=== PATIENT | male | born 1970 | race Caucasian/White ===

== ENCOUNTER → 2025-04-12 13:47 | Outpatient (REF) | payer OTHER, SELFPAY | LOC: RCS 13:47 | PROVIDERS: ATTENDING PHYSICIAN Physician Assistant Medical; FAMILY PHYSICIAN Family Medicine | DX: R00.2 Palpitations (principal); R00.0 Tachycardia, unspecified | CPT/HCPCS: 93225; 93226 ==

== ENCOUNTER 2025-04-15 05:59 | Observation (INO) | payer OTHER, SELFPAY ==
[2025-04-14 23:15] VITALS: BP 142/90
[2025-04-15] VITALS (7 sets, daily range): BP systolic 104–130; BP diastolic 71–87; BMI 26.4; BMI 25.8
[2025-04-15 01:17] LABS: Hematocrit 42.2 % (39.0-52.0); Hemoglobin 14.7 g/dL (13.0-18.0); Mean Corp Hgb Conc. 34.8 g/dL (33.0-37.0); Mean Corpuscular Volume 94.6 fL (80.0-94.0); Nucleated Red Blood Cells % 0 % (-); Platelet Count 250 10^3/uL (130-400); Red Cell Dist. Width 11.8 % (11.5-14.5)
[2025-04-15 01:30] LABS: ALT (SGPT) 22 U/L (0-50); AST (SGOT) 28 U/L (17-59); Albumin 4.9 g/dl (3.5-5.0); Alkaline Phosphatase 78 U/L (38-126); Blood Urea Nitrogen 13 mg/dl (9-20); Calcium 9.5 mg/dl (8.4-10.2); Carbon Dioxide 26 mmol/L (22-30); Chloride 110 mmol/L (98-107); Estimated Creatinine Clearance 92 ml/min; Glucose 97 mg/dl (70-99); Potassium 4.2 mmol/L (3.5-5.1); Sodium 145 mmol/L (135-145); Total Protein 7.2 g/dl (6.3-8.2); eGFR > 60.00
[2025-04-15 01:41] LABS: Troponin I 0.019 ng/ml
--- NOTE | 2025-04-15 03:05 | ED.GENMED ---
History of Present Illness
General
Chief Complaint: Cardiac Symptoms
Time Seen by Provider: 04/15/25 02:09
History of Present Illness
History of Present Illness:
54-year-old male with past medical history of rheumatoid arthritis presenting to the emergency department for palpitations and fluttering. Patient reports that the symptoms have been ongoing for some time, has recently followed up with his primary
care doctor and had Holter monitor completed, dropped off today. He has an upcoming appointment with cardiology in about 2 weeks. He reports that the fluttering has been increasing in duration and quality in the past few weeks. Last month he had
2 episodes where symptoms lasted about 2 hours. Prior to arrival he also had an episode. He notes that each time that he has a severe episode, usually precipitated by alcohol. Reports that in February, he had 2 episodes where he had been drinking the
night before and the following day had severe fluttering and discomfort. Denies any associated pain. Denies significant personal cardiac history or family history of cardiac disease. Denies fever. Denies difficulty breathing. Denies any
excessive caffeine intake. Recently had thyroid testing few weeks ago, normal. Denies additional acute medical complaints
Past History
Past History
ED Past Medical History: Other (arthritis, diverticulitis)
ED Past Surgical History: Orthopedic
Social History
Tobacco: Non-smoker
Drug: None
Phy Exam
Physical Exam
Physical Exam:
General: Well-appearing, no clinical signs of dehydration, nontoxic and in no acute distress
HEENT: protecting airway
Neck: appears supple
CV: Normal heart rate, regular rhythm, no evidence of cyanosis
Resp: No accessory muscle use, no increased work of breathing, lungs clear to auscultation bilaterally
Abd: No distention
Extremities: No deformities, no swelling
Neuro: alert, no focal neurologic deficit
: deferred
Rectal: deferred
Psych: Normal affect
Skin: Intact
Course
Orders/Labs/Results
Orders:
Orders
04/14/25 23:20
ECG [Electrocardiogram (*1)] Urgent
Reason for Study: Chest Pain
EKG- Treatment ONCE
Complete Blood Count/With Diff Urgent
Comprehensive Metabolic Panel Urgent
Troponin I Urgent
04/15/25 01:08
TSH Reflex To Free T4 Routine
Comment: ADD OB
04/15/25 03:45
EKG [Electrocardiogram (*1)] Urgent
Reason for Study: Chest Pain
04/15/25 03:53
Troponin I Urgent
04/15/25 05:41
Aspirin Chewable [Low Strength Aspirin] 324 mg PO NOW STA
04/15/25 05:44
Admit/Transfer Patient As Directed
Co-Sign Provider:
Level of Care: Observation services
Assign to:: Telemetry
Physician / Group: Andree
Diagnosis: palpitations, chest pain
Reason for Telemetry: Chest Pain syndromes
Date to Stop Telemetry: 04/17/25
Time to Stop Telemetry: 11:00
PRN Pain Medication Management As Directed
May give lesser potent ordered pain med per pt: Yes
preference::
Protocol:: Medication orders for pain may be administered in a
manner that supports deferring to patient preference
when the pt is:
- Requesting an ordered lesser potent pain medication.
Least to most potent pain medications are defined
as: acetaminophen < NSAID < tramadol < opioids
(morphine, oxycodone, hydromorphone).
- Requesting a lesser dose of the same medication IF
ORDERED.
- Requesting a less intrusive route of administration
if both routes are prescribed by the provider (PO <
IV).
04/15/25 05:45
Code Status As Directed
Resuscitation Status: Full Code
04/15/25 Breakfast
Cholesterol Lowering
At Your Request: Full Participation
Does patient need a safe tray?: No
Cholesterol Lowering: Sodium, 2 Gram
04/15/25 07:35
Acetaminophen [Tylenol] 650 mg PO Q4HPRN PRN
Nitroglycerin Sublingual [Nitrostat (Sublingual)] 0.4 mg SL [id number] PRN
04/15/25 07:35
CARDIOLOGY CONSULT Routine
Consulting Provider: Stephen Mckeon
Was physician already notified: No
Reason for consult: palpitations, rising trop 0.019 -> 0.035
Consult Notification Routine
Specialty to Notify: Cardiology
Date consulting provider notified: 04/15/25
Time consulting provider notified: 07:37
Notified:: Provider
Activity As Directed
Activity Level: As Tolerated
INT (Intravenous Needle Therapy) As Directed
Comment: maintain peripheral IV access
Intake/ Output As Directed
Frequency: Per unit guidelines
Pneumatic Compression Sleeves As Directed
Type: Knee high
Vital Signs As Directed
Frequency: q4h
Weight As Directed
Frequency: Daily
Pulse Ox/spot Check [RESP] Routine
Quantity: 1
Special Instructions: on admission and then every shift if on oxygen
DX Deep Vein Thrombosis Video Routine
04/15/25 08:00
FOLic ACID [Folvite] 1 mg PO DAILY
04/15/25 10:25
Troponin I Q3H
Comment: at admit & Q3H for 3 total including ED draws, obtain ECG with each level
04/16/25 18:00
Methotrexate Sodium [Methotrexate] 20 mg PO WEEKLY
04/17/25 11:00
DC Protocol for Telemetry ONCE
Abnormal Lab Results
04/15/25 04/15/25
01:08 03:53
RBC 4.46 L 10^6/uL
(4.70-6.10)
MCV 94.6 H fL
(80.0-94.0)
MCH 33.0 H pg
(27.0-31.0)
Monocytes % 9.4 H %
(1.7-9.3)
Chloride 110 H mmol/L
(98-107)
Troponin I 0.035 H* D ng/ml
04/15/25 01:08
04/15/25 01:08
Vital Signs
Initial and Last Documented VS:
Initial Vital Signs
Temp Pulse Resp BP Pulse Ox
97 F 90 20 142/90 100
04/14/25 23:15 04/14/25 23:15 04/14/25 23:15 04/14/25 23:15 04/14/25 23:15
Last Documented Vital Signs
Temp Pulse Resp BP Pulse Ox
98.3 F 82 18 118/71 98
04/15/25 11:10 04/15/25 11:10 04/15/25 11:10 04/15/25 11:10 04/15/25 11:10
MDM/Problems Addressed
MDM/Problems Addressed:
54-year-old male without significant past medical history presenting to the emergency department for fluttering and palpitations. Vital signs on arrival are normal.
On exam patient is resting comfortably, no acute distress or discomfort. Patient reports that he an episode prior to arrival where he was wearing his Holter monitor, recently dropped off the Holter monitor today. Currently unremarkable cardiac and
pulmonary exam, EKG sinus rhythm without acute evidence of ischemia or arrhythmia. Unclear etiology of symptoms, however currently hemodynamically stable. Labs obtained prior to my assessment, detectable but normal troponin, and normal electrolyte
panel. Will repeat troponin and continue to monitor via court recording monitor.
03:00 -Able to see patient's Holter monitor report, read by cardiology. Notes no significant arrhythmia or pauses. Symptoms and conclusion are suspected to be correlated with sinus tachycardia, sinus rhythm and PVCs. No concerning rhythms
detected. Copy of patient's report provided to patient
05:00 - Patient second troponin is now elevated. Repeat EKG without acute ischemia, however in the setting of increasing troponins and cardiac symptoms, plan for admission for troponin trending and cardiac consultation
*Pulse Oximetry
SaO2: 99
Oxygen Mode of Delivery: Room air
Patient hypoxic: no
*EKG
Interpreted by ED Provider?: Yes
EKG Intrepretation Date: 04/15/25
EKG Intrepretation Time: 03:10
Interpretation: normal
Heart Rate: 84
Rate: normal
Rhythm: sinus
[place]: normal axis
Interval: normal interval
QRS Pattern: normal QRS
Ischemia: no ischemia
*Critical Care Note
Total Time (30-74mins, 75-104mins- exclusive of procedures): Not Applicable
ED Attending Note
-
Portions of this chart may have been created with voice recognition software.� Occasional wrong word or��sound alike� substitutions may have occurred due to the inherent limitations of voice recognition software.
Discharge Plan
Departure
Patient Disposition: Admit
Date of Disposition: 04/15/25
Time of Disposition: 05:01
Presentation/result/management discussed w/ accepting MD/DO: Hospitalist
Patient with high blood pressure during this ER visit?: No
Condition: Good
Discharge Problem:
Palpitations
Interventions
Interventions:
*Risk Screen - Suicide Last Done: 04/14/25 23:15
*General Assessment Last Done: 04/15/25 01:12
*Neglect/Abuse Screening Last Done: 04/14/25 23:15
*ED- Fall Risk Assessment Last Done: 04/15/25 01:12
*ED COVID-19 Vaccine History Last Done: 04/15/25 01:12
*Nursing Disposition Last Done: 04/15/25 07:37
ED- Pulmonary Assessment Last Done: 04/15/25 04:00
ED- Cardiac Assessment Last Done: 04/15/25 04:00
Discharge Date and Time
Discharge Date/Time: 04/15/25 07:37
[2025-04-15 04:45] LABS: Troponin I 0.035 ng/ml
--- NOTE | 2025-04-15 05:08 | HPS.HSE ---
Family Physician
-
Family Physician: Sukumar Lofton
Chief Complaint
-
Palpitations
History of Present Illness
This is a 53-year-old with past medical history significant for rheumatoid arthritis and a prior history of diverticulitis status post sigmoid resection presenting to the emergency department with worsening symptoms of chest fluttering and
palpitations.
Patient reports onset of symptoms several weeks ago. At that time he had a large quantity of alcohol during a libertarian. Following this episode he developed severe palpitations and fluttering as well as lightheadedness. After the episode of
fluttering he felt that his heart was racing for up to about 2 hours before dissipation. Since then he has had 2 additional episodes which were both associated with alcohol intake. The episode that brought him to the emergency rooms today was
after only a small dose of martini. When he arrived home he started having this palpitations lasting several minutes and nausea with lightheadedness. He said after the tachycardia dissipated he still had a sense of heavy heartbeats.
Patient reports that he has chronically had episodes of fluttering in the past only lasting a few minutes and then resolving. He had a Holter monitor several years ago that was negative. He had also completed 2 days of Holter monitor in the last 3
days and days did not show any events. Patient denies exertional dyspnea. He does exercise regularly and denies exertional chest pain. He reports occasionally having chest and left shoulder/arm tightness. He has not had any recent medication
changes. He denies any melena or hematochezia.
Vital signs are stable. ECG shows a normal sinus rhythm at a rate of 75 without any arrhythmia. No acute ST or T wave changes. Q waves noted throughout but this was similar to his prior EKG. His initial troponin was 0.019, repeat troponin was
0.035. Her CBC was normal. Electrolytes were normal BUN/creatinine were normal. LFTs were normal.
Medical History
Past Medical History
Past Medical History: Reports Other (Rheumatoid arthritis, diverticulosis, diverticulitis,)
Past Surgical History: Reports Bowel Resection (History laparotomy, sigmoidectomy and abdominal washout 2020) and Tonsilectomy
Social History
Tobacco: Non-smoker
Alcohol: Binge drinker
Drug: None
Family History
Family History: Not pertinent
Allergies / Home Medications
Allergies reflects when Allergies were last updated in [facility].
Home Medications with original date entered in [facility]
Allergy/Medication List:
Allergies
Allergy/AdvReac Type Severity Reaction Status Date / Time
No Known Allergies Allergy Unverified 02/05/23 10:04
Home Medications
Methotrexate 2.5 mg tabs, 20 mg p.o. every Thursday
Folic acid 1 mg tablet, 1 mg p.o. daily
Review of Systems
-
Constitutional: Reports No Symptoms
EENT: Reports No Symptoms
Respiratory: Reports No Symptoms
Cardiac: Reports Chest Pain and Palpitations
Abdomen/GI: Reports No Symptoms
: Reports No Symptoms
Musculoskeletal: Reports No Symptoms
Skin: Reports No Symptoms
Neurological: Reports No Symptoms
Endocrine: Reports No Symptoms
Hematologic/Lymphatic: Reports No Symptoms
Psych: Reports No Symptoms
Physical Exam
Vital Signs
Vital Signs
Temp Pulse Resp BP Pulse Ox
98.6 F 79 20 122/76 96
04/15/25 04:03 04/15/25 04:00 04/15/25 04:00 04/15/25 04:00 04/15/25 04:00
Physical Exam
General: Well Developed, Well Nourished and No Apparent Distress
HEENT: NormoCephalic, Moist mucous membranes and Atraumatic
Respiratory: Clear
Cardiac: S1/S2 and Regular Rhythm; No Murmur or Rub
GI: Soft, Non Tender, Non Distended and Normal Bowel Sounds; No Organomegaly
Rectal: Deferred by Provider
Musculoskeletal: No Clubbing, No Cyanosis and No Edema
Skin: No Rash
Neuro: AO x 3 and Nonfocal/grossly intact
Psych: Calm
Laboratory Results
-
04/15/25 01:08
04/15/25 01:08
Laboratory Results
Total Bilirubin 0.4 mg/dl (0.2-1.3) 04/15/25 01:08
AST 28 U/L (17-59) 04/15/25 01:08
ALT 22 U/L (0-50) 04/15/25 01:08
Alkaline Phosphatase 78 U/L (38-126) 04/15/25 01:08
Troponin I 0.035 ng/ml H* D 04/15/25 03:53
Data Reviewed
-
Medical Tests (Nuc Med, Echo, EKG etc): Image Personally Visualized and interpreted
Lab Data: Labs Reviewed by me
Old Records: Reviewed
Impression/Plan
-
IMPRESSION:
53-year-old with h/o RA on methotrexate and humira presenting with recurrent episodes of palpitations, severe episode associated with tachycardia and lightheadedness now presents to the emergency department after third severe episode. He had just
completed 2 days of Holter monitoring that showed no activity. ECG again shows a normal sinus rhythm without any ectopy. He there were no ischemic findings. However his troponin had a delta was 0.0192 0.035. Patient's exam was unremarkable. He
had returned the holter prior to the event last night.
PLAN:
Palpitation/chest pain -possibly these palpitations are secondary to ectopy/arrhythmia which may be an ischemia equivalent versus primarily arrhythmic process generating his symptoms. No current cp or pressure.
-Admit to telemetry observation
-Aspirin 324 x 1
- cycle enzymes
- echo
- if trops flat will need further ischemic testing with stress test next week
- If no events observed here, may need continous ambulatory monitoring
- cardiology consultation
DVT PPX- SCDs
Code status - Full Code
[2025-04-15] MEDS: LOW STRENGTH ASPIRIN 324 MG PO (06:09)
--- NOTE | 2025-04-15 08:14 | PTCARENOTE ---
Pt admitted to floor from ED. Pt in with Palpitations s/p ETOH use. Pt a+o, in no distress.
[2025-04-15] MEDS: FOLVITE 1 MG PO (08:26)
--- NOTE | 2025-04-15 10:58 | CON.CAR ---
Addendum entered and electronically signed by Stephen Mckeon DO 04/15/25 12:02:
I saw and examined the patient.
The Sexual Assault Counselor's note was reviewed and I agree with the note.
Comment:
Patient pleasant 54-year-old male with a history of RA who presented due to palpitations and fluttering. Patient had experienced several episodes following ingestion of alcohol which were worse than prior episodes. Initially, patient seen in the
emergency department EKG demonstrating sinus rhythm initial troponin negative however repeat was 0.035 with subsequent repeat as negative. Patient has not undergone prior cardiac evaluation or testing. Patient reporting active exercise without
limitation, chest pain, shortness of breath, or weakness.
GENERAL: no acute distress
EYE: sclera anicteric
NECK: Supple, no JVD, no carotid bruit appreciated
ENT: normal nose, moist mucosal membranes
CARDIAC: Regular rate and rhythm, +S1/S2, no murmur, rubs, or gallops
CHEST/PULMONARY: Normal effort, clear breath sounds
ABDOMEN: Soft, without focal tenderness or distention
NEUROLOGICAL: Alert and oriented x3
SKIN: Warm and dry, no rash
PSYCH: Normal and appropriate interaction.
Telemetry sinus rhythm, PVC, rare PAC
A/P as below
Patient with atypical cardiac symptoms without significant EKG change. Initial troponin negative with repeat of 0.035 and subsequent negative. Patient asymptomatic in hospital at this time
Will continue aspirin daily
Will schedule for stress test, echocardiogram
Patient has follow-up with his thermal engineer Dr. Escobar on 04/26/2025
Discussed with patient that if new or worsening symptoms he should proceed back to the hospital for evaluation, as well as no significant physical activity until seen in the office patient verbalized understanding and agreed with plan.
Stable for DC from CV standpoint
Addendum entered and electronically signed by Paula Casiano PA-C 04/15/25 11:31:
repeat trop negative. will arrange for echo and stress echo as able prior to appt with Dr. Escobar 04/26. he recently started taking a baby aspirin daily, would continue for now given mild trop elevation until stress test resulted. he has been
advised to limit activity and avoid alcohol for now. d/w hospitalist
Original Note:
Consultation
Consultation Request
Date/Time Consultation Performed: 04/15/25
Requesting Provider: Dr. Crescencio Connelly
Performing Provider: Paula Casiano PA-C for Dr. Mckeon
Reason for Consultation: palpitations, elevated troponin
Medical History
-
Chief Complaint: palpitations
History of Present Illness:
Patient is a 54 yo M with PMH of RA on orencia, and methotrexate who presented to [facility] for evaluation of palpitations. He reports at baseline he has 'flutters' every so often, which are longstanding, however recently has been having 'severe
episodes.' He reports the first was after his daughters' graduation democrat several weeks ago. States he had several drinks over the course of the day, then the following day noted severe fluttering with associated lightheadedness. He states he then
had a similar episode after another democrat with similar alcohol consumption several weeks later. He states he has a cardiology appointment scheduled with Dr. Escobar on 04/26/25 however then had holter monitor through PCP 04/12-04/14 where he had
flutters but no episodes like the above described (however also did not drink ETOH during Holter) which showed symptoms correlating with SR/ST with occasional PVCs. He did have 12 beats in 3 total supraventricular runs in addition. Last evening he
was out to dinner with his and had 1.5 cocktails and last evening around 12:30PM noted fluttering. He used his [employer] monitor, and tracing reviewed by me showed SR. He presented to ER for evaluation. Initial trop 0.019 and repeat 0.035 so was
admitted. Denies CP or SOB. States is active on treadmill 4-5 times a week and no association with symptoms during exercise however at times afterward states he notes his baseline fluttering sensations but nothing severe like the several episodes in
last several weeks. Denies thyroid disease history, new meds, supplements, drug use, excessive caffeine use.
PMH:
RA
History of colon resection for divericulitis
Past Medical History
Past Medical History: Other (in HPI)
Social History
Tobacco: Non-Smoker
Alcohol: Occasional
Drug: None
Personal:
Living: With Family
Employment: Employed (supervisor [employer])
Family History
Family History: Other (valve replacement in father)
Allergies / Home Medications
Allergy/AdvReac Type Severity Reaction Status Date / Time
No Known Allergies Allergy Unverified 02/05/23 10:04
�Medication �Instructions �Recorded �Confirmed �Type
L.acidoph,paracasei,B.animalis 10 1 cap PO DAILY 09/04/21 02/05/23 History
billion cell capsule
fluticasone propionate 50 1 spray intranasal DAILY 09/04/21 02/05/23 History
mcg/actuation nasal
spray,suspension
multivitamin with folic acid 400 1 tab PO DAILY 09/04/21 02/05/23 History
mcg tablet (Tab-A-Zelda)
naproxen 500 mg tablet 500 mg PO DAILYPRN PRN MILD PAIN 09/04/21 02/05/23 History
abatacept 125 mg/mL subcutaneous 125 mg SC QWEEK 02/05/23 04/15/25 History
syringe (Orencia)
calcium phosphate,dibasic 77 1 tab PO DAILY 02/05/23 04/15/25 History
mg-vitamin D3 400 unit tablet
Review of Systems
-
History Source: Patient
All other systems: Negative unless noted
Physical Exam
Vital Signs
Temp Pulse Resp BP Pulse Ox
97.4 F 69 16 130/87 99
04/15/25 07:43 04/15/25 07:43 04/15/25 07:43 04/15/25 07:43 04/15/25 07:43
Lab Results
04/15/25 01:08
04/15/25 01:08
Troponin I Cancelled 04/15/25 07:35
Physical Exam
General: No Apparent Distress and Comfortable
HEENT: Normocephalic, Anicteric and Moist Mucous Membranes
Respiratory: Clear and Non Labored Respirations
Cardiac: S1/S2 and Regular Rhythm
GI: Soft, Non Tender, Non Distended and Normal Bowel Sounds
Musculoskeletal: No Clubbing, No Cyanosis and No Edema
Skin: Warm and Dry
Neuro: AO x 3
Impression / Plan
-
Primary Care Professional: scheduled to see Dr. Escobar 04/26/25 as new patient
Assessment:
Palpitations
Elevated troponin
RA
History of colon resection for diverticulitis
Holter Monitor 04/12-04/14/25: Average heart rate was 72, minimum was 50 and maximum was 148. A total of 24 supraventricular ectopic beats were detected, 0% of total with 10 supraventricular beats isolated, 1 couplet and 12 beats and 3 total
supraventricular runs, 183 ventricular ectopic beats were detected with 0% of total beats. Symptoms of fluttering correlated with sinus rhythm, sinus tachycardia and PVC
Plan:
- Patient presents with third episode of 'severe fluttering' in the last several weeks.
- Has been in sinus rhythm since arrival on review of telemetry
- Review of patient's cardia monitor tracing from last evening at time of his symptoms shows sinus rhythm
- Reviewed results of above Holter monitor with patient
- Blood work okay
- Check TSH
- Trend troponin to peak. If continues to trend up, would consider keeping for inpatient ischemic evaluation on Thursday. If troponin stable or downtrending, as without chest pain or ischemic changes on EKG, would plan for outpatient echo/stress
test and follow-up as scheduled with cardiology 04/26. He is hopeful for discharge today as it is his daughters' 18th birthday
- Avoid triggers such as alcohol
- Discussed with nursing
- Discussed with hospitalist
Data Reviewed
-
EKG: Tracing Personally Visualized and interpreted
Medical Tests (Nuc Med, Echo etc): Report Reviewed by me
Labs: Labs Reviewed by me
Old Records: Reviewed
[2025-04-15 11:12] LABS: Troponin I < 0.012 ng/ml
--- NOTE | 2025-04-15 13:18 | W.PN.HOSP.TC ---
Addendum entered and electronically signed by Hay Connelly MD 04/15/25 15:47:
cleared by cardiology for dc home a repeat trop neg
stress test and echo as an outpatient
states he needs to get home today as it is his twins birthdays
informed him to avoid alochol
he will follow up without patient cardiology
Original Note:
Today's Communication/Plan
-
Check Troponin levels
Manage patient as outpatient if troponin levels normalize.
ECHO and Stress with cardiology follow up as outpatient
Assessment / Plan
Assessment / Plan
53 year old male, with past medical history significant for inflammatory arthritis, vitamin D deficiency, pancreatic cyst and a prior history of colon polyps and diverticulitis status post sigmoid resection, neuroma presents to the emergency
department with worsening symptoms of chest fluttering and palpitations associated with alcohol intake.
According to the patient, his palpitation started 12-13 years ago, Holter monitoring done, with unremarkable results. A month prior to admission, he had 2 episodes of palpitation, lightheadedness, followed by a sensation of an erratic heartrate,
symptoms seem to be precipitated by alcohol drinking the day prior. The symptoms have gotten worse overtime, which prompted patient to seek consult at the ER.
#Palpitations
ECG at ER-
SINUS RHYTHM WITH MARKED SINUS ARRHYTHMIA
INCREASED R/S RATIO IN V1, CONSIDER EARLY TRANSITION OR POSTERIOR INFARCT
ABNORMAL ECG
Repeat ECG-
NORMAL SINUS RHYTHM
MINIMAL VOLTAGE CRITERIA FOR LVH, MAY BE NORMAL VARIANT ( R in aVL )
BORDERLINE ECG
Troponin I - 0.035H ----> Troponin I- <0.012
Normal Troponin I levels on repeat troponin test accompanied by stable ECG, thus patient was deemed stable and will be managed as outpatient.
Follow up with Dr. Escobar 04/26/2025
Follow up Echocardiogram and Stress Test as outpatient
Advised to avoid alcohol intake
Allowed to continue baby aspirin at home until next appointment with Hospice Liaison.
Anticipated Discharge: Today
Subjective/Interval History
-
Date of Service: April 15, 2025
The patient does not report any palpitations or chest fluttering. He denies weakness or chest pain.
Objective Data
-
Labs:
Laboratory Results
04/15/25
01:08
Sodium 145
Potassium 4.2
Chloride 110 H
Carbon Dioxide 26
BUN 13
Creatinine 0.9
Glucose 97
Calcium 9.5
Total Bilirubin 0.4
AST 28
ALT 22
Alkaline Phosphatase 78
Vital Signs:
Vital Signs
Temp Pulse Resp BP Pulse Ox
98.3 F 82 18 118/71 98
04/15/25 11:10 04/15/25 11:10 04/15/25 11:10 04/15/25 11:10 04/15/25 11:10
Review of Systems
-
History Source: Patient
Constitutional: Reports Other (Denies fever, chills, weakness)
EENT: Reports No Symptoms Reported and Other
Respiratory: Reports Other (Denies cough, hemoptysis, trouble breathing, wheezing)
Cardiac: Reports Other (Denies palpitations, chest pain, syncope)
Abdomen/GI: Reports No Symptoms
Genitourinary: Reports No Symptoms
Musculoskeletal: Reports Other (Denies muscle weakness, edema)
Skin: Reports Other (Denies rash, itching, sores)
Neuro: Reports No Symptoms
Hematologic / Lymphatic: Reports Other (No bleeding)
Physical Exam
-
General: Well Developed, Well Nourished, No Apparent Distress, Comfortable and Conversant
HEENT: Normocephalic, Atraumatic and Anicteric
Respiratory: Clear to Auscultation and Non Labored Respirations
Cardiac: Regular Rhythm and S1/S2
GI: Soft, Nontender and Normal Bowel Sounds
Rectal: Deferred by Provider
Genito-urinary: No Costovertebral Tender and Clear Urine
Musculoskeletal: No Cyanosis and No Edema
Skin: Warm and Normal Turgor
Neuro: AO x 3 and No Motor Deficits
Psych: Calm
--- NOTE | 2025-04-15 16:18 | W.DCSUMMARY ---
Discharge Summary
Discharge Data
Date of Admission: 04/15/25
Date of Discharge: 04/15/25
-
Pending Results: No
Hospital Course
Discharging Physician : Mirella Brown
Disposition : Home
Primary care physician : Dr. Hay Connelly
Principal Discharge diagnosis : Palpitations
Chronic Discharge diagnosis : Inflammatory Arthritis, Vitamin D deficiency
Hospital Course :
53 year old male, with past medical history significant for inflammatory arthritis, vitamin D deficiency, pancreatic cyst and a prior history of colon polyps and diverticulitis status post sigmoid resection, neuroma presents to the emergency
department with worsening symptoms of chest fluttering and palpitations associated with alcohol intake.
According to the patient, his palpitation started 12-13 years ago, Holter monitoring done, with unremarkable results. A month prior to admission, he had 2 episodes of palpitation, lightheadedness, followed by a sensation of an erratic heartrate,
symptoms seem to be precipitated by alcohol drinking the day prior. The symptoms have gotten worse overtime, which prompted patient to seek consult at the ER. ECG showed sinus rhythm with marked sinus arrhythmia, increased r/s ratio in V1, consider
early transition or posterior infarct. Troponin levels also increased at 0.035. Basic Metabolic Panel and Complete Blood Count unremarkable. Patient was admitted to telemetry to continue observation and trending of troponin I, given one dose Aspirin
324mg, Echocardiogram planned. The patient was seen the next morning, he was asymptomatic and expressed to go home to attend his twin's birthday. Repeat Troponin I came back normal at <0.012. Repeat ECG also showed normal sinus rhythm, with minimal
voltage criteria for LVH. Thus patient was deemed ready for discharge with outpatient Echocardiogram, Stress test, and Cardiology follow up. He was also advised to avoid alcohol.
Important imaging findings :
N/A
Procedure findings :
Discharge Plan
-
Patient Disposition: Home (Routine Discharge)
Discharge Diagnosis/Procedures: Palpitations
Condition: Fair
Diet: Low Cholesterol
Activity: As tolerated
Driving Restrictions: As prior to admission
Bathing Restrictions: None
Referrals:
Sukumar Lofton DO [Family Provider, Family Practice]
Kishor Escobar MD [Active, Cardiology] - 04/26/25 1:20 pm
Referral Note: Please call with questions
Additional Discharge Medication Instructions: AVOID ALCOHOL!
Dr. Escobar's office will call you on Tuesday 04/17 to schedule your echo and stress test!
Prescriptions:
New
methotrexate sodium 2.5 mg Tablet
20 mg PO WEEKLY Qty: 10 0RF
nitroglycerin 0.4 mg Tablet, Sublingual
0.4 mg sublingual [id number] PRN (Reason: chest pain) Qty: 10 0RF
Continued
fluticasone propionate 1 SPRAY spray,suspension
1 spray intranasal DAILY
multivitamin with folic acid [Tab-A-Zelda] 1 TABLET tablet
1 tab PO DAILY
L.acidoph,paracasei,B.animalis 1 EACH capsule
1 cap PO DAILY
calcium phos,dibas-vitamin D3 77-400 mg-unit Tablet
1 tab PO DAILY
Orencia 125 mg/mL Syringe
125 mg SC QWEEK
Discontinued
naproxen 500 MG tablet
500 mg PO DAILYPRN PRN (Reason: MILD PAIN)
Discharge Orders:
Discharge Patient (As Directed); Ordered 04/15/25
Ordered By: Mirella Brown
Discharge Date and Time
Discharge Date/Time: 04/15/25 13:52
Print Language: SOMALI
== END 2025-04-15 13:52 | disposition home or self-care (01) ==
LOC: 4 EAST ACU 05:59
PROVIDERS: Emergency Medicine; ADMITTING PHYSICIAN Internal Medicine; ATTENDING PHYSICIAN Hospitalist; CONSULT PHYSICIAN Internal Medicine Cardiovascular Disease; EMERGENCY PHYSICIAN Student in an Organized Health Care Education/Training Program; FAMILY PHYSICIAN Family Medicine
DX: R00.2 Palpitations (principal); R42 Dizziness and giddiness; R07.9 Chest pain, unspecified; M06.9 Rheumatoid arthritis, unspecified; I49.3 Ventricular premature depolarization; K86.2 Cyst of pancreas; R79.89 Other specified abnormal findings of blood chemistry; E55.9 Vitamin D deficiency, unspecified; I49.8 Other specified cardiac arrhythmias; Z90.49 Acquired absence of other specified parts of digestive tract; Z79.82 Long term (current) use of aspirin; Z79.631 Long term (current) use of antimetabolite agent; Z79.69 Long term (current) use of other immunomodulators and immunosuppressants; Z86.0100 Personal history of colon polyps, unspecified
CPT/HCPCS: 80053; 84443; 84484; 85025; 93005; 99285; G0378

== ENCOUNTER → 2025-04-18 07:20 | Outpatient (REF) | payer OTHER, SELFPAY | LOC: HWRCS 07:20 | PROVIDERS: ATTENDING PHYSICIAN Internal Medicine Cardiovascular Disease; FAMILY PHYSICIAN Physician Assistant Medical | DX: R74.8 Abnormal levels of other serum enzymes (principal); I49.3 Ventricular premature depolarization | CPT/HCPCS: 93306 ==

== ENCOUNTER → 2025-04-25 13:40 | Outpatient (REF) | payer OTHER, SELFPAY | LOC: RCS 13:40 | PROVIDERS: ATTENDING PHYSICIAN Internal Medicine Cardiovascular Disease; FAMILY PHYSICIAN Physician Assistant Medical | DX: R74.8 Abnormal levels of other serum enzymes (principal); I49.3 Ventricular premature depolarization; I49.8 Other specified cardiac arrhythmias | CPT/HCPCS: 93017; 93350 ==

== ENCOUNTER → 2025-07-14 11:11 | Outpatient (REF) | payer SELFPAY | LOC: HWRAD 11:11 | PROVIDERS: ATTENDING PHYSICIAN Internal Medicine Cardiovascular Disease; FAMILY PHYSICIAN Family Medicine | DX: R07.9 Chest pain, unspecified (principal) | CPT/HCPCS: 75571 ==

== ENCOUNTER 2025-07-31 05:50 | Day surgery (SDC) | payer OTHER, SELFPAY ==
[2025-07-31] VITALS (8 sets, daily range): BP systolic 108–144; BP diastolic 71–85; BMI 25.4
[2025-07-31] MEDS: TYLENOL 1000 MG PO (06:28)
[2025-07-31] MEDS: HEPARIN 5000 UNITS SC (06:28)
[2025-07-31] MEDS: NORMOSOL-R/PLASMALYTE-A 1000 IV (06:45)
--- NOTE | 2025-07-31 08:16 | OR.RPT ---
Operative Report
Operative Report
Primary Surgeon: Damari
Assisting: Cristiana LARA
Pre-op Diagnosis: Right inguinal hernia
Post-op Diagnosis: Same
Procedure Performed: Robot assisted laparoscopic repair right inguinal hernia
Anesthesia Type: GETA
Specimen / Cultures: None
Estimated Blood Loss: 3cc
Complications: None immediate
Operative Findings: Indirect defect, pseudosac everted, small cord lipoma; XL MID 3D Max
Date of Surgery: 07/31/25
Indications: This 54M developed a symptomatic right inguinal hernia. Robot assisted laparoscopic repair was elected.
Description of procedure:� The patient was taken to the operating room and positioned into supine position. The patient�s abdomen was prepped and draped in standard sterile fashion. A time-out was completed verifying correct patient, procedure,
site, positioning, and implants and special equipment prior to beginning this procedure.
A stab incision was made in the left upper quadrant, a Veress needle was inserted and proper position was confirmed by aspiration and saline drop test. Following this, pneumoperitoneum was created with insufflation of carbon dioxide to 12 mmHg. Then
a 8mm robotic trocar was inserted above and to the left of the umbilicus. A laparoscope was inserted and the area of initial trocar entry and Veress needle placement were both inspected and no injuries were found. Two 8mm trocars were then placed
lateral to the rectus sheath under direct visualization.
Both inguinal regions were inspected and the median umbilical ligament, medial umbilical ligament, and lateral umbilical fold were identified. Attention was turned to the right groin. The peritoneum was incised transversely above the defect and a
flap was developed in the caudad direction. Javier�s ligament was identified ultimately dissected to its junction with the iliac vein and the space of Retzius was developed bluntly. The dissection was continued inferiorly to the iliopubic tract,
with care taken to avoid injury to the femoral branch of the genitofemoral nerve and the lateral femoral cutaneous nerve. The cord structures were parietalized.
The direct space was inspected and a hernia defect was identified and reduced. The pseudosac was everted and secured to Javier's with 2-0 vicryl suture. The femoral space was inspected and no defect was identified. The indirect space was inspected
no defect was identified. The canal was inspected and a small cord lipoma was identified and reduced. The cord was moderately fatty.
Extra large right MID 3D max mesh was passed through a trocar. The mesh was placed into the preperitoneal space and moved into position to lay flat and completely cover the direct, indirect, and femoral spaces with overlap at the midline. The mesh
was secured into place using 2-0 vicryl suture to Javier�s ligament medially and laterally. Care was taken to avoid the inferolateral triangles containing the iliac vessels and genital nerves. The peritoneal flap was closed over the mesh and secured
with 2-0 monocryl stratafix suture in similar positions of safety. A 14g angiocath was used to decompress the preperitoneal space revealing good seal and all mesh in good position without folding or curling.
After ensuring adequate hemostasis, the trocars were removed and the pneumoperitoneum allowed to escape. The trocar incisions were closed at the skin level using 4-0 monocryl and topical skin adhesive. Marcaine 0.25% with epinephrine was infiltrated
into the skin around the port incisions. All counts were correct and the patient tolerated the procedure well and was taken to the postanesthesia care unit in stable condition.
The assistance of Cristiana LARA was required due to the complexity of the procedure. During the procedure she assisted with retraction, resection, and closure of the wound.
[2025-07-31] MEDS: SUBLIMAZE 25 MCG IV (08:41)
[2025-07-31] MEDS: SUBLIMAZE 50 MCG IV (08:58)
== END 2025-07-31 10:08 | disposition home or self-care (01) ==
LOC: SDS 05:50
PROVIDERS: ATTENDING PHYSICIAN Surgery; FAMILY PHYSICIAN Family Medicine
DX: K40.90 Unilateral inguinal hernia, without obstruction or gangrene, not specified as recurrent (principal)
CPT/HCPCS: 49650; C1781